=== PATIENT | male | born 1970 | race Caucasian/White ===

== ENCOUNTER 2024-10-17 22:41 | Emergency (ER) | payer OTHER, SELFPAY ==
[2024-10-17 22:46] VITALS: BP 186/106
--- NOTE | 2024-10-18 01:11 | ED.GENMED ---
History of Present Illness
General
Chief Complaint: Throat Problem
Source: patient
Exam Limitations: none
Time Seen by Provider: 10/18/24 00:25
History of Present Illness
History of Present Illness:
53yoM with a history of hypothyroidism and GERD presenting for evaluation of swollen glands. Patient has been sick for about 3 weeks with a cough and congestion. He was seen by his PCP and was prescribed an antibiotic which she completed without
any relief. He was prescribed prednisone a few days ago but did not start this. Patient was eating dinner this evening. After swallowing, he noticed some swelling on the right side of his neck with tenderness. He became concerned and decided to
come to the ED for evaluation. He denies any fevers, weight loss, shortness of breath.
Past History
Past History
ED Past Medical History: None
ED Past Surgical History: None
Social History
Tobacco: Non-smoker
Phy Exam
General Physical Exam
General Presentation: well appearing and no apparent distress
General age: appears stated age
General Skin: warm and dry
General Habitus: normal
General Mental: alert
ENT Exam
ENT Exam: TM's normal, pharynx normal, neck supple, normocephalic, lymphnodes, swallowing well and other (+L anterior cervical lymphadenopathy. Neck supple. Posterior oropharynx appears normal. No elevation of floor of mouth or signs of dental
infection. Normal phonation. Tolerating oral secretions without difficulty.)
Cardiovascular Exam
Cardiovascular Exam: regular rate/rhythm
Pulmonary Exam
Pulmonary Exam: lungs clear, no respiratory distress, no rales, no crackles, no rhonchi and no wheezing
Neurological Exam
Neurological Exam: alert
[place] Coma Scale
Eye Opening: Spontaneous
Verbal Response: Oriented
Motor Response: Obeys Commands
GCS Total Score: 15
Skin Exam
Skin Exam: normal color and warm/dry
Psychiatric Exam
Psychiatric Exam: normal mood/affect
Course
Vital Signs
Initial and Last Documented VS:
Initial Vital Signs
Temp Pulse Resp BP Pulse Ox
98.2 F 77 20 186/106 95
10/17/24 22:46 10/17/24 22:46 10/17/24 22:46 10/17/24 22:46 10/17/24 22:46
Last Documented Vital Signs
Temp Pulse Resp BP Pulse Ox
98.2 F 72 16 161/101 97
10/17/24 22:46 10/18/24 01:15 10/18/24 01:15 10/18/24 01:15 10/18/24 01:15
MDM/Problems Addressed
Differential Diagnosis Includes:
53yoM here with swollen glands. C/o cough x 3 weeks. Recently prescribed prednisone but did not start this. [place] left sided neck swelling after eating dinner this evening. He is hypertensive with otherwise stable vital signs. There is left anterior
cervical lymphadenopathy on exam. No clinical evidence of parotitis or Surya's angina. Remainder of exam is reassuring.
No indication for workup at this time. I recommended observation and starting the steroid course as prescribed by his PCP. He was given contact information for ENT for f/u. ED return precautions reviewed including trouble swallowing/breathing.
Patient in agreement with plan and he was discharged in stable condition.
*Critical Care Note
Total Time (30-74mins, 75-104mins- exclusive of procedures): Not Applicable
ED Attending Note
-
Portions of this chart may have been created with voice recognition software.� Occasional wrong word or��sound alike� substitutions may have occurred due to the inherent limitations of voice recognition software.
Discharge Plan
Departure
Patient Disposition: Home (Routine Discharge)
Date of Disposition: 10/18/24
Time of Disposition: 01:13
Patient with high blood pressure during this ER visit?: Yes
Discharge Problem:
Cervical lymphadenopathy, Bronchitis
Instructions: Swollen lymph nodes in adults
Referrals:
Kp Jacobo MD [Active] -
Flaquito Koehler DO [Family Provider] -
Activity Restrictions/Additional Instructions:
Start taking prednisone as prescribed by your family doctor. Use Flonase nasal spray, Claritin, and Mucinex for your congestion.
Please follow-up with your family doctor and ENT. Return to the ER with any worsening symptoms including trouble swallowing or breathing.
Interventions
Interventions:
*Risk Screen - Suicide Last Done: 10/17/24 22:46
*General Assessment Last Done: 10/17/24 22:46
*Neglect/Abuse Screening Last Done: 10/17/24 22:46
*Nursing Disposition Last Done: 10/18/24 01:22
ED-EENT Assessment Last Done: 10/18/24 01:15
ED- Pulmonary Assessment Last Done: 10/18/24 01:15
Discharge Date and Time
Discharge Date/Time: 10/18/24 01:22
Print Language: [id number]
[2024-10-18 01:15] VITALS: BP 161/101
== END 2024-10-18 01:22 | disposition home or self-care (01) ==
LOC: EMR 22:41
PROVIDERS: EMERGENCY PHYSICIAN Emergency Medicine; FAMILY PHYSICIAN Family Medicine
DX: J40 Bronchitis, not specified as acute or chronic (principal); R59.0 Localized enlarged lymph nodes; E03.9 Hypothyroidism, unspecified
CPT/HCPCS: 99282